=== PATIENT | male | born 1985 | race Caucasian/White ===

== ENCOUNTER 2018-01-03 05:44 | Inpatient (IN) | payer OTHER ==
[~2018-01-03] VITALS: Ht 177.8 cm; Wt 90.7 kg
--- NOTE | 2018-01-03 06:54 | NUR ---
DR SHOOK AT BEDSIDE FOR MSE. PT PRESENTS TO ED C/O HEADACHE AND FEVER X2 DAYS. A&OX4.
[2018-01-03] MEDS ORDERED: ACETAMINOPHEN 325 MG TABLET PO ONE (07:06)
[2018-01-03] MEDS ORDERED: IPRATROPIUM BROMIDE 0.5 MG/2.5 ML NEBU NEB ONE (07:06)
[2018-01-03] MEDS ORDERED: IPRATROPIUM BROMIDE 0.5 MG/2.5 ML NEBU ONE (07:14)
[2018-01-03] MEDS ORDERED: ALBUTEROL SULFATE 2.5 MG/3 ML NEBU ONE (07:14)
[2018-01-03] MEDS ORDERED: IBUPROFEN 800 MG TABLET PO ONE (07:15)
[2018-01-03] MEDS ORDERED: CEFTRIAXONE 1 G in IV DEXTROSE 5% 50 ML IV ONE (07:15)
[2018-01-03] MEDS ORDERED: ALBUTEROL SULFATE 2.5 MG/3 ML NEBU NEB ONE (07:15)
[2018-01-03] MEDS ORDERED: methylPREDNISolone SOD SUCC 125 MG/2 ML VIAL IV ONE (07:15)
[2018-01-03] MEDS ORDERED: GUAIFENESIN/CODEINE 5 ML LIQUID UDC PO ONE (07:15)
[2018-01-03] MEDS ORDERED: IV NS 1000 ML 1,000 ML IV ONE ×2 (07:15→08:30)
[2018-01-03] MEDS ORDERED: ACETAMINOPHEN 325 MG TABLET ONE (07:16)
[2018-01-03] MEDS ORDERED: GUAIFENESIN/CODEINE 5 ML LIQUID UDC ONE (07:17)
[2018-01-03] MEDS ORDERED: IBUPROFEN 800 MG TABLET ONE (07:17)
[2018-01-03] MEDS ORDERED: methylPREDNISolone SOD SUCC 125 MG/2 ML VIAL ONE (07:17)
--- NOTE | 2018-01-03 07:29 | NUR ---
Pt out of ER for CT.
[2018-01-03 07:38] LABS: *BILIRUBIN,URIN NEGATIVE (NEGATIVE); *BLOOD, URINE Trace-lysed (NEGATIVE); *CLARITY,URINE CLEAR (CLEAR); *COLOR,URINE YELLOW (YELLOW); *KETONES,URINE NEGATIVE (NEGATIVE); *PROTEIN,URINE TRACE (NEGATIVE); *UROBILINOGEN,URINE 0.2 E.U./dl (NORMAL); LEUKOCYTE ESTERASE ,URINE NEGATIVE (NEGATIVE); NITRITE, URINE NEGATIVE (NEGATIVE); UGLUCOSE NEGATIVE (NEGATIVE)
[2018-01-03 07:38] LABS: CREATININE 1.2 mg/dL (0.6-1.3); POTASSIUM 3.5 mmol/L (3.5-5.1)
[2018-01-03] MEDS ORDERED: CEFTRIAXONE 1 G VIAL ONE (07:40)
[2018-01-03 07:44] LABS: BILIRUBIN,TOTAL 0.6 mg/dL (0.2-1.0); TOTAL PROTEIN, SERUM 7.4 g/dL (6.4-8.2)
[2018-01-03 07:46] LABS: BACTERIA,URINE NONE SEEN /HPF (NONE SEEN); SQUAMOUS EPITHELIAL CELL,UR FEW /HPF (NONE SEEN); WBC,URINE 0-3 /HPF (0-3)
[2018-01-03 07:46] LABS: BASOPHILS % (AUTO) 0.6 % (0.0-2.0); EOSINOPHILS % (AUTO) 0.5 % (0.0-7.0); HEMATOCRIT 39.8 % (36.7-47.1); LYMPHOCYTES # (AUTO) 1.1 K/uL (20.0-40.0); LYMPHOCYTES % (AUTO) 14.1 % (20.5-51.5); MEAN CORPUSCULAR HEMOGLOBIN 32.4 uug (23.8-33.4); MEAN CORPUSCULAR HGB CONC 35 g/dL (32.5-36.3); MONOCYTES % (AUTO) 12.3 % (0.0-11.0); NEUTROPHILS # (AUTO) 5.9 K/uL (1.8-8.9); NEUTROPHILS % (AUTO) 72.5 % (38.5-71.5); PLATELET COUNT (AUTO) 170 K/uL (152-348); RED BLOOD CELL COUNT(AUTO) 4.33 MIL/uL (4.06-5.63); WHITE BLOOD COUNT (AUTO) 8.1 K/uL (3.6-10.2)
[2018-01-03 08:33] LABS: ABG BASE EXCESS -2.2 mmol/L; ABG HCO3 21.4 mmol/L; ABG PCO2 33.3 mmHg (35.0-45.0); ABG PH 7.426 (7.350-7.450); ABG SITE RIGHT RADIAL; ABG TOTAL HEMOGLOBIN 13.3 G/dL (13.5-18.0); COHb 1.5 % (0.5-1.5); MetHb 0.4 % (0.0-1.5); O2Hb 88.1 % (94.0-97.0); VENT MODE room air
--- NOTE | 2018-01-03 08:45 | NUR ---
Belonging list completed and placed in the chart. Not candidate for MRSA.
--- NOTE | 2018-01-03 09:40 | NUR ---
Received pt via gurall by ER nurse. No immediate s/s of distress noted
[2018-01-03 10:10] VITALS: BP 122/64
[2018-01-03] MEDS ORDERED: ACETAMINOPHEN 325 MG TABLET PO PRN ×2 (12:00→12:30)
--- NOTE | 2018-01-03 12:27 | NUR ---
Seen and evaluated by LILIANA Ley
[2018-01-03] MEDS ORDERED: IBUPROFEN 800 MG TABLET PO PRN (12:30)
[2018-01-03] MEDS ORDERED: Z GUARD REMEDY PASTE 57 GM TUBE TOP PRN (12:30)
[2018-01-03] MEDS ORDERED: MAGNESIUM HYDROXIDE 30 ML LIQUID UDC PO PRN (12:30)
[2018-01-03] MEDS ORDERED: ONDANSETRON 4 MG/2 ML VIAL IV PRN (12:30)
[2018-01-03] MEDS ORDERED: ZOLPIDEM 5 MG TABLET PO PRN (12:30)
[2018-01-03] MEDS: GUAIFENESIN LA 600 MG TABLET.SA PO SCH ×2 (12:59→20:23)
[2018-01-03] MEDS: IV NS 1000 ML 1,000 ML IV PRN (12:59)
[2018-01-03] MEDS: LEVOFLOXACIN 750MG/D5W 750 MG in PREMIXED 1 EACH IV SCH (13:11)
--- NOTE | 2018-01-03 15:11 | NUR ---
Pt is AOx4, able to do oral care himself Addendum: 01/03/18 at 1511 by ENRIQUE STRICKLAND RN Amended: Links added.
[2018-01-03 15:27] VITALS: BP 136/76
[2018-01-03] MEDS: HYDROCODONE/APAP 5-325MG TABLET PO PRN (15:58)
--- NOTE | 2018-01-03 17:32 | NUR ---
Pt is AOx4. pt is able to do oral care on his own Addendum: 01/03/18 at 1732 by ENRIQUE STRICKLAND RN Amended: Links added.
--- NOTE | 2018-01-03 18:45 | NUR ---
New orders for [place] 10 [id number] PRN
--- NOTE | 2018-01-03 19:09 | NUR ---
Pt able to do oral care himself Addendum: 01/03/18 at 1910 by ENRIQUE STRICKLAND RN Amended: Links added.
--- NOTE | 2018-01-03 19:20 | NUR ---
Received pt sitting on the side of his bed. AAOX4. In no acute distress. Friends on bedside. day shift nurse reported left AC IV infiltrated. Will start new IV line. VS WNL. No coughing noted at this time. Safety measure initiated and call wu within reach.
[2018-01-03 20:00] VITALS: BP 107/56
[2018-01-03 20:06] VITALS: BP 137/90
[2018-01-03] MEDS: HYDROCODONE/APAP 10-325 MG TABLET PO PRN (20:24)
--- NOTE | 2018-01-03 21:00 | NUR ---
New IV line inserted on right AC #22 gauge. IVF infusing.
[2018-01-04] MEDS: IV NS 1000 ML 1,000 ML IV PRN (03:41)
[2018-01-04] MEDS: HYDROCODONE/APAP 10-325 MG TABLET PO PRN (03:44)
[2018-01-04 04:00] VITALS: BP 117/64
--- NOTE | 2018-01-04 05:52 | NUR ---
AAOX4. In no acute distress. O2 sat at 96% on RA. VS WNL. Decreased in cough per patient. Pain well manage with [place]. IV site on right AC remains intact and patent. IVF infusing. Safety measure initiated and call wu within reach.
[2018-01-04 06:09] LABS: BASOPHILS % (AUTO) 0.1 % (0.0-2.0); HEMATOCRIT 38.3 % (36.7-47.1); HEMOGLOBIN 13.5 g/dL (12.5-16.3); LYMPHOCYTES # (AUTO) 0.8 K/uL (20.0-40.0); LYMPHOCYTES % (AUTO) 6.3 % (20.5-51.5); MEAN CORPUSCULAR HEMOGLOBIN 32.6 uug (23.8-33.4); MEAN CORPUSCULAR HGB CONC 35 g/dL (32.5-36.3); MEAN CORPUSCULAR VOLUME 92.4 fL (73.0-96.2); MONOCYTES # (AUTO) 1.1 K/uL (2.0-10.0); NEUTROPHILS # (AUTO) 10.7 K/uL (1.8-8.9); NEUTROPHILS % (AUTO) 84.6 % (38.5-71.5); PLATELET COUNT (AUTO) 191 K/uL (152-348); RED BLOOD CELL COUNT(AUTO) 4.15 MIL/uL (4.06-5.63); WHITE BLOOD COUNT (AUTO) 12.6 K/uL (3.6-10.2)
[2018-01-04 06:33] LABS: CREATININE 0.9 mg/dL (0.6-1.3); MAGNESIUM 2.1 mg/dL (1.8-2.4); PHOSPHOROUS 2.9 mg/dL (2.5-4.9); POTASSIUM 4.3 mmol/L (3.5-5.1)
--- NOTE | 2018-01-04 07:30 | NUR ---
RECEIVED REPORT FROM SITE AUDITOR NURSE, PATIENT IN BED ASLEEP, EASILY WOKEN UP, NO DISTRESS NOTED AT THIS TIME, BED IN LOW POSITION, SIDE RAILS UP X2.
[2018-01-04] MEDS: GUAIFENESIN LA 600 MG TABLET.SA PO SCH (08:39)
[2018-01-04] MEDS ORDERED: GUAI600T53 PO (10:31)
[2018-01-04] MEDS ORDERED: LEVO750T21 PO (10:31)
[2018-01-04] MEDS ORDERED: HYDR-548 PO (10:31)
[2018-01-04] MEDS: HYDROCODONE/APAP 5-325MG TABLET PO PRN (10:37)
[2018-01-04] MEDS ORDERED: METH4TAB3 PO (10:42)
[2018-01-04 12:00] VITALS: BP 128/85
[2018-01-04] MEDS: LEVOFLOXACIN 750MG/D5W 750 MG in PREMIXED 1 EACH IV SCH (12:28)
--- NOTE | 2018-01-04 16:00 | NUR ---
PATIENT HAS BEEN GIVEN DISCHARGE INSTRUCTIONS, APPOINTMENT M[facility], PHARMACY CONSULTED FOR NEW MEDICATIONS. IV REMOVED AND PATIENT WAS TAKEN DOWN TO DISCHARGE AREA BY CONTRACTOR [employer] THRESHING.
== END 2018-01-04 16:00 | disposition home or self-care (01) | DRG 720 ==
LOC: ER 05:49 → TELE 09:01 → MED 10:01
PROVIDERS: ADMIT Internal Medicine; ATTEND Nurse Practitioner Acute Care
DX: A41.9 Sepsis, unspecified organism (principal); J96.01 Acute respiratory failure with hypoxia; J15.9 Unspecified bacterial pneumonia; E87.1 Hypo-osmolality and hyponatremia; Z87.891 Personal history of nicotine dependence
CPT/HCPCS: 36415; 36600; 70030-TC; 70450; 71045; 83605; 83735; 84100; 85025; 85610; 87040; 87400; 93005; A4663; J0696; J1956; J2930; J3490; J3590; J7030

== ENCOUNTER 2018-03-16 15:15 | Emergency (ER) | payer OTHER ==
[~2018-03-16] VITALS: Ht 180.3 cm; Wt 95.3 kg
[~2018-03-16 15:15] MED LIST: GUAI600T53 PO; HYDR-548 PO; LEVO750T21 PO; METH4TAB3 PO
[2018-03-16] MEDS ORDERED: KETOROLAC TROMETHAMINE 30 MG INJ IM ONE (15:45)
[2018-03-16] MEDS ORDERED: KETOROLAC TROMETHAMINE 30 MG INJ ONE (15:52)
--- NOTE | 2018-03-16 15:57 | NUR ---
mse completed, pt d/c'd home, aci/rx x1 given. pt ambuklated w/o diff/took all belongings.
[2018-03-16 15:58] VITALS: BP 132/88
== END 2018-03-16 15:59 | disposition home or self-care (01) ==
LOC: ER 15:17
DX: S13.4XXA Sprain of ligaments of cervical spine, initial encounter (principal); S39.012A Strain of muscle, fascia and tendon of lower back, initial encounter; V43.52XA Car driver injured in collision with other type car in traffic accident, initial encounter; Y93.89 Activity, other specified; Y92.410 Unspecified street and highway as the place of occurrence of the external cause; Y99.8 Other external cause status
CPT/HCPCS: A4663; J1885

== ENCOUNTER 2018-08-14 04:50 | Emergency (ER) | payer OTHER ==
[~2018-08-14] VITALS: Ht 177.8 cm; Wt 95.3 kg
[~2018-08-14 04:50] MED LIST changes: +HYDR-4354 PO; -HYDR-548 PO
--- NOTE | 2018-08-14 05:00 | NUR ---
Pt. ambulated into ED w/ c/o N/V since approx. 2300 last night after eating a sandwich, states he has not been able to hold anything down, denies blood in emesis, will continue to monitor,
[2018-08-14] MEDS ORDERED: ONDANSETRON 4 MG/2 ML VIAL IV ONE (05:15)
[2018-08-14] MEDS ORDERED: IV NORMAL SALINE 1000 ML BAG IV ONE (05:15)
[2018-08-14 05:27] LABS: BASOPHILS % (AUTO) 0.2 % (0.0-2.0); EOSINOPHILS # (AUTO) 0.1 K/uL (0.0-0.7); HEMOGLOBIN 15.9 g/dL (12.5-16.3); LYMPHOCYTES # (AUTO) 0.2 K/uL (20.0-40.0); MEAN CORPUSCULAR HGB CONC 36 g/dL (32.5-36.3); MONOCYTES # (AUTO) 0.5 K/uL (2.0-10.0)
[2018-08-14] MEDS ORDERED: ONDANSETRON 4 MG/2 ML VIAL ONE (05:27)
--- NOTE | 2018-08-14 05:30 | NUR ---
Gave pt. pillow and layed head of bed down per pts. request,
[2018-08-14 05:35] LABS: CREATININE 1.2 mg/dL (0.6-1.3); POTASSIUM 3.7 mmol/L (3.5-5.1)
[2018-08-14 05:41] LABS: BILIRUBIN,DIRECT 0.2 mg/dL (0.0-0.2); TOTAL PROTEIN, SERUM 7.8 g/dL (6.4-8.2)
[2018-08-14 05:42] LABS: EOSINOPHILS % (AUTO) 1.4 % (0.0-7.0); HEMATOCRIT 43.6 % (36.7-47.1); LYMPHOCYTES % (AUTO) 2.5 % (20.5-51.5); MEAN CORPUSCULAR HEMOGLOBIN 33.4 uug (23.8-33.4); MEAN CORPUSCULAR VOLUME 91.6 fL (73.0-96.2); MONOCYTES % (AUTO) 5.2 % (0.0-11.0); NEUTROPHILS # (AUTO) 8.7 K/uL (1.8-8.9); NEUTROPHILS % (AUTO) 90.7 % (38.5-71.5); PLATELET COUNT (AUTO) 201 K/uL (152-348); RED BLOOD CELL COUNT(AUTO) 4.76 MIL/uL (4.06-5.63); WHITE BLOOD COUNT (AUTO) 9.6 K/uL (3.6-10.2)
--- NOTE | 2018-08-14 05:57 | NUR ---
Pt. resting w/ eyes closed in bed, IV patent and infusing, no s/s infection
--- NOTE | 2018-08-14 06:28 | NUR ---
Patient discharged to home in stable conditon. Written and verbal after care instructions given. Patient verbalizes understanding of instructions. Pt. d/c w/ prescription per MD, d/c papers signed, ID band removed, all belongings w/ pt., ambulated out of ED w/ steady gait, left in private vehicle, NAD,
== END 2018-08-14 06:34 | disposition home or self-care (01) ==
LOC: ER 04:51
DX: K52.9 Noninfective gastroenteritis and colitis, unspecified (principal); Z79.2 Long term (current) use of antibiotics; Z79.891 Long term (current) use of opiate analgesic; Z79.899 Other long term (current) drug therapy
CPT/HCPCS: 36415; 80048; 80076; 83690; 85025; 96361; 96374; 99283; J2405; A4663; J7030